=== PATIENT | male | born 1980 | race Caucasian/White ===

== ENCOUNTER 2020-11-16 09:40 | Inpatient (IN) ==
[2020-11-16] MEDS ORDERED: ONDANSETRON 4 MG/2 ML VIAL IV PRN (13:49)
[2020-11-16 15:13] LABS: Basophils % 0.4 % (0.0-0.8); Eosinophils % 0.2 % (0.00-10.9); Hematocrit 42.7 VOL% (42.0-52.0); Hemoglobin 14.3 GM/DL (14.0-18.0); Immature Granulocytes % 1.7 %; Immature Granulocytes Absolute 0.09 #; Lymphocytes # 1.1 10*3/uL (1.4-4.0); Lymphocytes % 19.8 % (21.2-54.2); Mean Corpuscular HGB Conc 33.5 GM/DL (32-36); Mean Corpuscular Volume 79.4 FL (87-102); Mean Platelet Volume 10.5 FL (9.6-12.0); Neutrophils % 70.9 % (38.7-73.9); Platelet Count 177 T/CUMM (130-400); Red Blood Count 5.38 MC/CUMM (3.8-5.5); Red Cell Distribution Width 14.4 % (9.3-17.3); White Blood Count 5.3 T/CUMM (4-12)
[2020-11-16 15:24] LABS: INR 1.1; PT Patient Result 11.5 SECS (9.8-11.9)
[2020-11-16 15:34] LABS: Albumin 3.5 G/DL (3.4-5.0); Bilirubin,Total 0.7 MG/DL (0.2-1.0); Calcium 8.2 MG/DL (8.5-10.1); Ferritin 322.4 ng/ml (26-388); Total Protein 7.5 G/DL (6.4-8.3)
[2020-11-16] MEDS ORDERED: AZITHROMYCIN INJ 500 MG in SODIUM CHLORIDE 0.9% 250 ML IV ONE (16:00)
[2020-11-16] MEDS ORDERED: SODIUM CHLORIDE 0.9% 1,000 ML IV PRN (16:06)
[2020-11-16 16:18] LABS: Sedimentation Rate-Westergren 35 MM/HR (0-15)
[2020-11-16] MEDS: DEXAMETHASONE 4 MG/1 ML VIAL IV SCH (16:29)
[2020-11-16] MEDS: ZINC GLUCONATE 50 MG TABLET PO SCH (16:30)
[2020-11-16] MEDS: SODIUM CHLORIDE 0.9% 1,000 ML IV SCH ×2 (16:30→23:54)
[2020-11-16] MEDS: cefTRIAXone 1,000 MG in SYRINGE 1 EACH IV SCH (18:00)
[2020-11-16] MEDS ORDERED: REMDESIVIR 200 MG in SODIUM CHLORIDE 0.9% 210 ML IV ONE (20:00)
[2020-11-16] MEDS: ENOXAPARIN 40 MG/0.4 ML SYRINGE SUBCUT SCH (22:08)
[2020-11-16] MEDS: ASCORBIC ACID 500 MG TABLET PO SCH (22:09)
[2020-11-16] MEDS: FAMOTIDINE 20 MG TABLET PO SCH (22:09)
[2020-11-16] MEDS: ACETAMINOPHEN 325 MG TABLET PO PRN (22:09)
[2020-11-17] MEDS: SODIUM CHLORIDE 0.9% 1,000 ML IV SCH (05:19)
[2020-11-17 06:47] LABS: Basophils % 0.2 % (0.0-0.8); Hematocrit 39.4 VOL% (42.0-52.0); Hemoglobin 12.9 GM/DL (14.0-18.0); Immature Granulocytes % 2.5 %; Immature Granulocytes Absolute 0.13 #; Lymphocytes # 1.2 10*3/uL (1.4-4.0); Lymphocytes % 22.9 % (21.2-54.2); Mean Corpuscular HGB Conc 32.7 GM/DL (32-36); Mean Corpuscular Volume 80.4 FL (87-102); Mean Platelet Volume 10.2 FL (9.6-12.0); Monocytes % 8.5 % (1.7-12.7); Neutrophils % 65.9 % (38.7-73.9); Platelet Count 181 T/CUMM (130-400); Red Cell Distribution Width 14.1 % (9.3-17.3); White Blood Count 5.2 T/CUMM (4-12)
[2020-11-17 07:20] LABS: Bilirubin,Total 1.5 MG/DL (0.2-1.0); Osmolality,Calculated 278.5 MOS/KG (273-304); Total Protein 6.8 G/DL (6.4-8.3)
[2020-11-17] MEDS: DEXAMETHASONE 4 MG/1 ML VIAL IV SCH (08:13)
[2020-11-17] MEDS: FAMOTIDINE 20 MG TABLET PO SCH ×2 (08:13→20:40)
[2020-11-17] MEDS: OLMESARTAN 5 MG TABLET PO SCH (08:13)
[2020-11-17] MEDS: ASCORBIC ACID 500 MG TABLET PO SCH ×2 (08:15→20:40)
[2020-11-17] MEDS: CHOLECALCIFEROL 1,000 UNIT TABLET PO SCH (08:15)
[2020-11-17] MEDS: FLUoxetine 20 MG CAPSULE PO SCH (08:15)
[2020-11-17] MEDS: ZINC GLUCONATE 50 MG TABLET PO SCH (08:15)
[2020-11-17] MEDS: cefTRIAXone 1,000 MG in SYRINGE 1 EACH IV SCH (08:15)
[2020-11-17] MEDS: AZITHROMYCIN 250 MG TABLET PO SCH (08:15)
[2020-11-17] MEDS: REMDESIVIR 100 MG in SODIUM CHLORIDE 0.9% 230 ML IV SCH (10:06)
[2020-11-17] MEDS: ACETAMINOPHEN 325 MG TABLET PO PRN ×2 (12:45→20:39)
[2020-11-17] MEDS: MELATONIN 3 MG TABLET PO PRN (20:39)
[2020-11-17] MEDS: ENOXAPARIN 40 MG/0.4 ML SYRINGE SUBCUT SCH (20:40)
[2020-11-18 06:05] LABS: Basophils % 0.1 % (0.0-0.8); Hematocrit 40.2 VOL% (42.0-52.0); Hemoglobin 13.4 GM/DL (14.0-18.0); Immature Granulocytes % 1.9 %; Immature Granulocytes Absolute 0.14 #; Lymphocytes # 1.4 10*3/uL (1.4-4.0); Lymphocytes % 19.5 % (21.2-54.2); Mean Corpuscular HGB Conc 33.3 GM/DL (32-36); Mean Corpuscular Volume 80.1 FL (87-102); Mean Platelet Volume 10.5 FL (9.6-12.0); Neutrophils % 69.5 % (38.7-73.9); Platelet Count 217 T/CUMM (130-400); Red Blood Count 5.02 MC/CUMM (3.8-5.5); Red Cell Distribution Width 13.8 % (9.3-17.3); White Blood Count 7.4 T/CUMM (4-12)
[2020-11-18 06:46] LABS: Albumin 3.1 G/DL (3.4-5.0); Bilirubin,Total 1.2 MG/DL (0.2-1.0); Calcium 8.3 MG/DL (8.5-10.1); Ferritin 411.6 ng/ml (26-388); Osmolality,Calculated 275.7 MOS/KG (273-304); Total Protein 6.8 G/DL (6.4-8.3)
[2020-11-18] MEDS: ZINC GLUCONATE 50 MG TABLET PO SCH (08:02)
[2020-11-18] MEDS: DEXAMETHASONE 4 MG/1 ML VIAL IV SCH (08:02)
[2020-11-18] MEDS: ASCORBIC ACID 500 MG TABLET PO SCH ×2 (08:03→20:34)
[2020-11-18] MEDS: FLUoxetine 20 MG CAPSULE PO SCH (08:03)
[2020-11-18] MEDS: CHOLECALCIFEROL 1,000 UNIT TABLET PO SCH (08:03)
[2020-11-18] MEDS: cefTRIAXone 1,000 MG in SYRINGE 1 EACH IV SCH (08:04)
[2020-11-18] MEDS: FAMOTIDINE 20 MG TABLET PO SCH ×2 (08:04→20:34)
[2020-11-18] MEDS: OLMESARTAN 5 MG TABLET PO SCH (08:04)
[2020-11-18] MEDS: REMDESIVIR 100 MG in SODIUM CHLORIDE 0.9% 230 ML IV SCH (08:05)
[2020-11-18] MEDS: AZITHROMYCIN 250 MG TABLET PO SCH (08:05)
[2020-11-18] MEDS: ALBUTEROL INHALER 18 GM INH SCH ×2 (18:01→20:34)
[2020-11-18] MEDS: ACETAMINOPHEN 325 MG TABLET PO PRN (20:34)
[2020-11-18] MEDS: ENOXAPARIN 40 MG/0.4 ML SYRINGE SUBCUT SCH (20:34)
[2020-11-18] MEDS: MELATONIN 3 MG TABLET PO PRN (20:34)
[2020-11-19] MEDS: ALBUTEROL INHALER 18 GM INH SCH ×2 (00:05→09:17)
[2020-11-19 06:20] LABS: Basophils % 0.5 % (0.0-0.8); Hematocrit 39.4 VOL% (42.0-52.0); Hemoglobin 13.1 GM/DL (14.0-18.0); Immature Granulocytes % 4.7 %; Immature Granulocytes Absolute 0.29 #; Lymphocytes # 1.5 10*3/uL (1.4-4.0); Lymphocytes % 24.8 % (21.2-54.2); Mean Corpuscular HGB Conc 33.2 GM/DL (32-36); Mean Corpuscular Volume 80.1 FL (87-102); Mean Platelet Volume 10.2 FL (9.6-12.0); Monocytes % 9.4 % (1.7-12.7); Neutrophils % 60.6 % (38.7-73.9); Platelet Count 207 T/CUMM (130-400); Red Blood Count 4.92 MC/CUMM (3.8-5.5); Red Cell Distribution Width 13.9 % (9.3-17.3); White Blood Count 6.2 T/CUMM (4-12)
[2020-11-19 06:54] LABS: Albumin 2.9 G/DL (3.4-5.0); Bilirubin,Total 0.7 MG/DL (0.2-1.0); Ferritin 349.3 ng/ml (26-388); Osmolality,Calculated 282.3 MOS/KG (273-304); Total Protein 6.6 G/DL (6.4-8.3)
[2020-11-19] MEDS: FAMOTIDINE 20 MG TABLET PO SCH (09:17)
[2020-11-19] MEDS: FLUoxetine 20 MG CAPSULE PO SCH (09:17)
[2020-11-19] MEDS: OLMESARTAN 5 MG TABLET PO SCH (09:17)
[2020-11-19] MEDS: DEXAMETHASONE 4 MG/1 ML VIAL IV SCH (09:17)
[2020-11-19] MEDS: REMDESIVIR 100 MG in SODIUM CHLORIDE 0.9% 230 ML IV SCH (09:18)
[2020-11-19] MEDS: cefTRIAXone 1,000 MG in SYRINGE 1 EACH IV SCH (09:18)
[2020-11-19] MEDS: ASCORBIC ACID 500 MG TABLET PO SCH (09:20)
[2020-11-19] MEDS: AZITHROMYCIN 250 MG TABLET PO SCH (09:21)
[2020-11-19] MEDS: ZINC GLUCONATE 50 MG TABLET PO SCH (09:21)
[2020-11-19] MEDS: CHOLECALCIFEROL 1,000 UNIT TABLET PO SCH (09:21)
[2020-11-19 11:44] VITALS: BP 125/72
== END 2020-11-19 14:17 | disposition home or self-care (01) | DRG 177 ==
LOC: N.MMA.FM 09:40 → SUATTDRO 13:38 → N.2E 13:38
PROVIDERS: ADMIT Family Medicine; ATTEND Family Medicine